=== PATIENT | male | born 1990 | race Hispanic/Latino ===

== ENCOUNTER 2016-10-31 20:57 | Emergency (ER) | payer OTHER ==
[2016-10-31 20:57] VITALS: BMI 18.9
[2016-10-31 21:48] VITALS: BP 109/69; PULSE 86; RESP 16; TEMP 97.3; O2SAT 99
[2016-10-31] MEDS ORDERED: Amoxicillin-Clav 500-125 mg Tab PO STA (21:55)
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
[2016-10-31] MEDS ORDERED: Amoxicillin-Clav 250-125 mg Tab PO ONE (22:17)
[2016-10-31] MEDS ORDERED: Amoxicillin-Clav 875-125 mg Tab PO ONE (22:29)
[2016-10-31] MEDS: TDAP Vaccine 0.5 mL Syr IM ONE (22:32)
[2016-10-31] MEDS: Amoxicillin-Clav 875-125 mg Tab PO STA (22:36)
== END 2016-10-31 23:04 | disposition home or self-care (01) ==
LOC: H.ER 20:57
DX: T14.8 Other injury of unspecified body region (principal); W50.3XXA Accidental bite by another person, initial encounter; Y04.1XXA Assault by human bite, initial encounter; F31.9 Bipolar disorder, unspecified

== ENCOUNTER 2016-12-18 19:15 | Emergency (ER) | payer OTHER ==
[2016-12-18 19:16] VITALS: BMI 18.9
[2016-12-18 19:24] VITALS: RESP 16; TEMP 97.7
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
[2016-12-18] MEDS ORDERED: Lidocaine 2% Inj (20ml) ONE (20:56)
[2016-12-18] MEDS ORDERED: Lidocaine 2% Inj (20ml) SC ONE (21:01)
--- NOTE | 2016-12-18 22:35 | CT ---
EXAM: CT Right Upper Extremity Without Intravenous Contrast, Wrist CLINICAL HISTORY: 26 years old, male; Injury or trauma; Fall; Initial encounter; Fracture, traumatic injury; Closed fracture; Wrist; Right; Additional info: Fxr TECHNIQUE: Axial computed tomography images of the right wrist without intravenous contrast. This CT exam was performed using one or more of the following dose reduction techniques: automated exposure control, adjustment of the mA and/or kV according to patient size, and/or use of iterative reconstruction technique. COMPARISON: No relevant prior studies available. FINDINGS: Bones/joints: Comminuted, intraarticular fracture distal radius. Mild impaction at fracture site. 08/17-08/15 shafts width volar displacement of principal distal fracture fragments. No dislocation. Mild volar tilt of the radioarticular surface. Positive ulnar variance. Soft tissues: Soft tissue swelling/stranding/air about distal forearm/wrist/hand. IMPRESSION: 1. Distal radial fracture. 2. Incidental/non-acute findings are described above.
[2016-12-18 23:33] VITALS: BP 110/63; PULSE 73; O2SAT 100
--- NOTE | 2016-12-19 10:01 | RAD ---
PROCEDURE: Radiographs of the Right Forearm HISTORY: deformity COMPARISON: Correlation made with concurrent radiographs of the right wrist TECHNIQUE: Frontal and lateral views obtained. FINDINGS: BONES: Comminuted mildly impacted intra-articular fracture distal right radius. Fracture lines extend into the joint space margin. There is mild and volar angulation of the comminuted distal fragments JOINT SPACES: As above OTHER FINDINGS: None. IMPRESSION: Comminuted mildly impacted intra-articular fracture distal right radius. Fracture lines extend into the joint space margin. There is mild volar angulation of the comminuted distal fragments
--- NOTE | 2016-12-19 10:04 | RAD ---
PROCEDURE: Right wrist dated 12/18/2016. Three views of the right wrist performed HISTORY: deformity COMPARISON: Comparison made with concurrent radiographs of the right forearm and right hand FINDINGS: BONES: Re- demonstrated is a comminuted mildly impacted intra-articular fracture distal right radius. Fracture lines extend into the joint space margin. There is mild volar angulation of the comminuted distal fragments JOINTS: Normal. No dislocation. SOFT TISSUES: Swelling surrounding soft tissue swelling OTHER FINDINGS: None. IMPRESSION: Re- demonstrated is a comminuted mildly impacted intra-articular fracture distal right radius. Fracture lines extend into the joint space margin. There is mild volar angulation of the comminuted distal fragments surrounding soft tissue
--- NOTE | 2016-12-19 10:06 | RAD ---
PROCEDURE: Right hand dated 12/18/2016 Three views of the right hand performed HISTORY: deformity COMPARISON: Correlation made with concurrent radiographs of the right wrist and right forearm FINDINGS: BONES: Re- demonstrated is a comminuted mildly impacted intra-articular fracture distal right radius. Fracture lines extend into the joint space margin. There is mild volar angulation of the comminuted distal fragments JOINTS: Normal. No osteoarthritic changes. SOFT TISSUES: Surrounding soft tissue swelling OTHER FINDINGS: None. IMPRESSION: Re- demonstrated is a comminuted mildly impacted intra-articular fracture distal right radius. Fracture lines extend into the joint space margin. There is mild volar angulation of the comminuted distal fragments . Surrounding soft tissue swelling
== END 2016-12-18 23:32 | disposition home or self-care (01) ==
LOC: H.ER 19:15
DX: S62.91XA Unspecified fracture of right hand, initial encounter for closed fracture (principal); V00.131A Fall from skateboard, initial encounter; Y92.410 Unspecified street and highway as the place of occurrence of the external cause; F31.9 Bipolar disorder, unspecified

== ENCOUNTER 2016-12-22 07:52 | Emergency (ER) | payer OTHER ==
[2016-12-22 07:52] VITALS: BMI 18.9
[2016-12-22 09:21] VITALS: BP 115/84; PULSE 61; RESP 19; TEMP 97; O2SAT 99
--- NOTE | 2016-12-22 09:24 | ED PDOC ---
Upper Extremity Pain/Injury Time Seen by Provider: 12/22/16 09:08 Chief Complaint (Nursing): Finger,Hand,&Wrist Chief Complaint (Provider): Finger,Hand,&Wrist History Per: Patient History/Exam Limitations: no limitations Onset/Duration Of Symptoms: Days Current Symptoms Are (Timing): Still Present Quality: "Pain" Severity: Moderate Exacerbating Factor(s): Movement Additional Complaint(s): Patient is a 26 year old male who presents to ED for evaluation of continued pain to his right hand. Patient reports he was evaluated in ED 3 days ago, diagnosed with a fracture and splint placed. Patient states that due to the swelling, the splint is causing more pain and is unrelieved with Motrin. Notes Percocet provided mild relief but was only provided enough for 3 days and appointment with orthopedic is not untill Monday12/27/16. Denies any new injury, numbness or increased swelling. Past Medical History Reviewed: Historical Data, Nursing Documentation, Vital Signs - Medical History PMH: Bipolar Disorder, Depression, Seizures Denies: Diabetes, Hepatitis, HIV, HTN, Chronic Kidney Disease, Sexually Transmitted Disease - Surgical History Surgical History: Appendectomy - Family History Family History: States: Unknown Family Hx - Living Arrangements Living Arrangements: With Family - Immunization History Hx Tetanus Toxoid Vaccination: No Hx Influenza Vaccination: No Hx Pneumococcal Vaccination: No - Home Medications Home Medications: Ambulatory Orders Medication Instructions Recorded Valproic Acid [Depakene] 250 mg PO BID #30 capsule 04/16/16 Divalproex [Depakote ER] 500 mg PO BID 06/21/16 Valproic Acid [Depakene] 500 mg PO BID #20 sgl 06/21/16 Divalproex [Depakote ER(ONCE 1,000 mg PO HS #60 ter 07/22/16 DAILY)] traZODone [Desyrel] 50 mg PO HS PRN #30 tab 07/22/16 Amoxicillin/Potassium Clav 1 each PO Q8 #30 tablet 10/31/16 [Augmentin 500-125 Tablet] Ibuprofen [Motrin] 600 mg PO Q6 #20 tab 12/18/16 Oxycodone HCl/Acetaminophen 1 each PO Q4 #10 tablet 12/18/16 [Endocet 10-325 mg Tablet] oxyCODONE/Acetaminophen [Percocet 1 ea PO Q6 PRN #5 tab 12/18/16 5/325 mg Tab] - Allergies Allergies/Adverse Reactions: Allergies Allergy/AdvReac Type Severity Reaction Status Date / Time No Known Allergies Allergy Verified 12/18/16 19:48 Review of Systems Constitutional: Negative for: Weakness Gastrointestinal: Negative for: Nausea Musculoskeletal: Positive for: Hand Pain. Negative for: Neck Pain Skin: Negative for: Rash Neurological: Negative for: Numbness Physical Exam - Reviewed Nursing Documentation Reviewed: Yes Vital Signs Reviewed: Yes - Physical Exam Appears: Positive for: Non-toxic, No Acute Distress Skin: Positive for: Normal Color, Warm Eye Exam: Positive for: Normal appearance Neck: Positive for: Normal Extremity: Positive for: Normal ROM, Capillary Refill (less then 2 seconds ), Swelling (dorsum right hand (+) mild deformity at wrist. (+) mild-moderate tenderness wrist. Decreased ROM of fingers secondary to pain but sensation and motor intact. Skin color WNL, area of swelling is soft and non tender ) Neurologic/Psych: Positive for: Alert, Oriented. Negative for: Motor/Sensory Deficits Medical Decision Making Medical Decision Making: Time: 909 Initial impression: Known fracture, not likely medial nerve paralysis or compartment syndrome Initial plan: -- Percocet PO Splint placed by environmental tech. Sugar tongue placed right arm with slight extension of hand. Follow up with Dr Larios is already arrange. Scribe Attestation: Documented by Jacqueline Beck acting as a scribe for Rachael Chen MD. Scribe Attestation: All medical record entries made by the Scribe were at my direction and personally dictated by me. I have reviewed the chart and agree that the record accurately reflects my personal performance of the history, physical exam, medical decision making, and the department course for this patient. I have also personally directed, reviewed, and agree with the discharge instructions and disposition. Disposition - Clinical Impression Clinical Impression: Distal radius fracture, right - Patient ED Disposition Is Patient to be Admitted: No Doctor Will See Patient In The: Office Counseled Patient/Family Regarding: Studies Performed, Diagnosis, Need For Followup - Disposition Referrals: Leno Larios III, MD [Staff Provider] - Disposition: Routine/Home Disposition Time: 10:10 Condition: GOOD Additional Instructions: Follow up with [facility] On Monday. Take motrin for pain. Elevate your arm. Carry splint at all times. return for severe pain, numbness, and weakness. Instructions: Wrist Fracture in Adults (ED)
[2016-12-22] MEDS ORDERED: Oxycodone/Acetaminophen 5/325 mg Tab PO ONE (09:27)
[2016-12-22] MEDS ORDERED: Oxycodone/Acetaminophen 5/325 mg Tab ONE (09:30)
== END 2016-12-22 10:30 | disposition home or self-care (01) ==
LOC: SUPCPDRO 07:52 → H.ER 07:52
DX: M79.641 Pain in right hand (principal); Z47.89 Encounter for other orthopedic aftercare; F31.9 Bipolar disorder, unspecified

== ENCOUNTER 2017-02-23 20:00 | Observation (INO) | payer OTHER, MEDICAID ==
[2017-02-23 20:00] VITALS: BMI 18.9
[2017-02-23 20:11] VITALS: BP 116/77; PULSE 90; RESP 18; TEMP 97.8; O2SAT 97
[2017-02-23] MEDS ORDERED: Divalproex 500 mg ER (ONCE DAILY formulation) PO STA (20:33)
[2017-02-23] MEDS ORDERED: Sodium Chloride 0.9% 1,000 ML IV STA (20:33)
[2017-02-23 20:51] LABS: BASO % 0.6 % (0.0-2.0); EOS # 0.1 K/uL (0.0-0.7); EOS % 1.7 % (0.0-4.0); HEMOGLOBIN 14.2 g/dL (12.0-18.0); LYMPH # 1.5 K/uL (1.0-4.3); LYMPH % 26.7 % (20.0-40.0); MEAN CELL VOLUME 87.8 fl (80.0-94.0); MEAN CORPUSCULAR HEMOGLOBIN 29.1 pg (27.0-31.0); MEAN CORPUSCULAR HGB CONC 33.1 g/dL (33.0-37.0); MEAN PLATELET VOLUME 8.6 fl (7.2-11.7); MONO # 0.3 K/uL (0.0-0.8); MONO % 4.9 % (0.0-10.0); NEUT # 3.6 K/uL (1.8-7.0); NEUT % 66.1 % (50.0-75.0); NRBC % 0.2 % (0.0-0.0); RBC 4.88 Mil/uL (4.40-5.90); RED CELL DISTRIBUTION WIDTH 13.4 % (11.5-14.5); WHITE BLOOD COUNT 5.5 K/uL (4.8-10.8)
--- NOTE | 2017-02-23 20:54 | ED PDOC ---
HPI: General Adult Time Seen by Provider: 02/23/17 20:09 Chief Complaint (Nursing): Seizure History Per: Patient Additional Complaint(s): Pt. states earlier this afternoon while he walking he began to feel weak. He decided to sit down and while sitting down her fainted. He reports waking up on his own and was told by a bystander that he did faint but did not have any seizure like activity. States that he was able to call for an ambulance and he did not have any tongue lacerations or incontinence. Pt. states he has not taken his Depakote 1000mg ER in 3 days as he does not like how it makes him feel. Last seizure was approximately 7 months ago. Denies fever, chest pain, incontinence, oral injury, headache, rash, neck pain. Past Medical History Reviewed: Historical Data, Nursing Documentation, Vital Signs Vital Signs: Last Vital Signs Temp 97.8 F 02/23/17 20:08 Pulse 90 02/23/17 20:08 Resp 18 02/23/17 20:08 BP 116/77 02/23/17 20:08 Pulse Ox 97 02/24/17 04:12 - Medical History PMH: Bipolar Disorder, Depression, Seizures Denies: Diabetes, Hepatitis, HIV, HTN, Chronic Kidney Disease, Sexually Transmitted Disease - Surgical History Surgical History: Appendectomy - Family History Family History: States: Unknown Family Hx - Immunization History Hx Tetanus Toxoid Vaccination: No Hx Influenza Vaccination: No Hx Pneumococcal Vaccination: No - Home Medications Home Medications: Ambulatory Orders Medication Instructions Recorded Valproic Acid [Depakene] 250 mg PO BID #30 capsule 04/16/16 Divalproex [Depakote ER] 500 mg PO BID 06/21/16 Valproic Acid [Depakene] 500 mg PO BID #20 sgl 06/21/16 Divalproex [Depakote ER(ONCE 1,000 mg PO HS #60 ter 07/22/16 DAILY)] traZODone [Desyrel] 50 mg PO HS PRN #30 tab 07/22/16 Amoxicillin/Potassium Clav 1 each PO Q8 #30 tablet 10/31/16 [Augmentin 500-125 Tablet] Ibuprofen [Motrin] 600 mg PO Q6 #20 tab 12/18/16 Oxycodone HCl/Acetaminophen 1 each PO Q4 #10 tablet 12/18/16 [Endocet 10-325 mg Tablet] oxyCODONE/Acetaminophen [Percocet 1 ea PO Q6 PRN #5 tab 12/18/16 5/325 mg Tab] - Allergies Allergies/Adverse Reactions: Allergies Allergy/AdvReac Type Severity Reaction Status Date / Time No Known Allergies Allergy Verified 12/18/16 19:48 Review of Systems ROS Statement: Except As Marked, All Systems Reviewed And Found Negative Neurological: Positive for: Weakness Physical Exam - Reviewed Nursing Documentation Reviewed: Yes Vital Signs Reviewed: Yes - Physical Exam Appears: Positive for: Well, Non-toxic, No Acute Distress Head Exam: Positive for: ATRAUMATIC, NORMAL INSPECTION, NORMOCEPHALIC Skin: Positive for: Normal Color, Warm. Negative for: Rash Eye Exam: Positive for: EOMI, Normal appearance, PERRL ENT: Positive for: Normal ENT Inspection, Other (no oral lacerations) Neck: Positive for: Normal, Painless ROM Cardiovascular/Chest: Positive for: Regular Rate, Rhythm Respiratory: Positive for: Normal Breath Sounds. Negative for: Respiratory Distress Gastrointestinal/Abdominal: Positive for: Normal Exam, Bowel Sounds, Soft. Negative for: Tenderness Back: Positive for: Normal Inspection Extremity: Positive for: Normal ROM Neurologic/Psych: Positive for: Alert, Oriented - Laboratory Results Result Diagrams: 02/23/17 20:35 02/23/17 20:35 - ECG O2 Sat by Pulse Oximetry: 97 - Progress ED Course And Treament: Labs ordered. Depakote 1000mg PO given. IV NS bolus ordered. Seizure precautions ordered. Pt. placed on monitor. ED OBSERVATION Discharge: Yes Date of observation admission: 02/23/17 Time of observation admission: 20:33 - Observation admission statement Patient is being placed in observation because:: Syncope - Progress Note Progress Note: 02/23/17 23:16 Sleeping comfortably. Arousable to tactile and verbal stimuli but easily falls back asleep. Pending urine test. 02/24/17 00:42 Still sleeping. Pt. admits to eating several marijuana laced brownies. 02/24/17 03:18 Sleeping comfortably and in no distress. 02/24/17 05:11 AOx3. Sitting up resting comfortably. Offers no complaints. Disposition - Clinical Impression Clinical Impression: Syncope, Marijuana use - Patient ED Disposition Is Patient to be Admitted: No - Disposition Disposition: Routine/Home Disposition Time: 05:12 Condition: IMPROVED
[2017-02-23 21:02] LABS: ALB/GLOB RATIO 1.5 (1.0-2.1); ALBUMIN 4.5 g/dL (3.5-5.0); ALT/SGPT 40 U/L (21-72); AST/SGOT 35 U/L (17-59); BLOOD UREA NITROGEN 12 mg/dl (9-20); CALCIUM 9.5 mg/dL (8.4-10.2); GFR AFRICAN-AMERICAN > 60; GFR NON-AFRICAN AMERICAN > 60
[2017-02-23 23:32] LABS: URINE BACTERIA FEW (<OCC); URINE BILIRUBIN NEGATIVE (NEGATIVE); URINE BLOOD NEGATIVE (NEGATIVE); URINE CLARITY CLEAR (Clear); URINE COLOR YELLOW (YELLOW); URINE GLUCOSE (UA) NEG (Normal); URINE LEUKOCYTE ESTERASE NEG Leu/uL (Negative); URINE NITRATE NEGATIVE (NEGATIVE); URINE PROTEIN NEGATIVE (NEGATIVE); URINE UROBILINOGEN 0.2-1.0 mg/dL (0.2-1.0)
[2017-02-23 23:38] LABS: BARBITURATES, UR NEGATIVE (NEGATIVE); BENZODIAZEPINES, UR NEGATIVE (NEGATIVE); OPIATES, UR NEGATIVE (NEGATIVE); PHENCYCLIDINE, UR NEGATIVE (NEGATIVE)
--- NOTE | 2017-02-24 08:58 | CARD ---
APPROVED REPORT EKG Measurement Heart [id number] <Conclusion> Sinus bradycardia with 1st degree AV block Otherwise normal ECG
== END 2017-02-24 05:47 | disposition home or self-care (01) ==
LOC: H.ER 20:00 → H.EROBSV 20:33
PROVIDERS: ADMIT Emergency Medicine; ATTEND Emergency Medicine
DX: R55 Syncope and collapse (principal); F12.90 Cannabis use, unspecified, uncomplicated; Z86.59 Personal history of other mental and behavioral disorders; R56.9 Unspecified convulsions

== ENCOUNTER 2017-09-19 14:17 | Emergency (ER) | payer MEDICAID, OTHER ==
[2017-09-19 14:17] VITALS: BMI 18.9
[2017-09-19 14:28] VITALS: BP 132/84; PULSE 93; RESP 14; TEMP 97; O2SAT 99
--- NOTE | 2017-09-19 15:16 | ED PDOC ---
HPI: General Adult Time Seen by Provider: 09/19/17 14:46 Chief Complaint (Nursing): Male Genitourinary History Per: Patient Additional Complaint(s): Pt. states on Monday he had unprotected vaginal intercourse and states this morning he developed dysuria, yellow penile discharge, and a pruritic rash on his penis. Denies hx of STD, vesicles, testicular trauma, testicular pain/ swelling. Past Medical History Reviewed: Historical Data, Nursing Documentation, Vital Signs Vital Signs: Last Vital Signs Temp 97.0 F L 09/19/17 14:24 Pulse 93 H 09/19/17 14:24 Resp 14 09/19/17 14:24 BP 132/84 09/19/17 14:24 Pulse Ox 99 09/19/17 15:17 - Medical History PMH: Bipolar Disorder, Depression, Seizures Denies: Diabetes, Hepatitis, HIV, HTN, Chronic Kidney Disease, Sexually Transmitted Disease - Surgical History Surgical History: Appendectomy - Family History Family History: States: No Known Family Hx - Immunization History Hx Tetanus Toxoid Vaccination: No Hx Influenza Vaccination: No Hx Pneumococcal Vaccination: No - Home Medications Home Medications: Ambulatory Orders Medication Instructions Recorded Valproic Acid [Depakene] 250 mg PO BID #30 capsule 04/16/16 Divalproex [Depakote ER] 500 mg PO BID 06/21/16 Valproic Acid [Depakene] 500 mg PO BID #20 sgl 06/21/16 Divalproex [Depakote ER(ONCE 1,000 mg PO HS #60 ter 07/22/16 DAILY)] traZODone [Desyrel] 50 mg PO HS PRN #30 tab 07/22/16 Amoxicillin/Potassium Clav 1 each PO Q8 #30 tablet 10/31/16 [Augmentin 500-125 Tablet] Ibuprofen [Motrin] 600 mg PO Q6 #20 tab 12/18/16 Oxycodone HCl/Acetaminophen 1 each PO Q4 #10 tablet 12/18/16 [Endocet 10-325 mg Tablet] oxyCODONE/Acetaminophen [Percocet 1 ea PO Q6 PRN #5 tab 12/18/16 5/325 mg Tab] Divalproex [Depakote ER] 1,000 mg PO HS #14 ter 02/24/17 Ondansetron ODT [Zofran ODT] 4 mg PO TID #21 odt 02/24/17 - Allergies Allergies/Adverse Reactions: Allergies Allergy/AdvReac Type Severity Reaction Status Date / Time No Known Allergies Allergy Verified 12/18/16 19:48 Review of Systems ROS Statement: Except As Marked, All Systems Reviewed And Found Negative Genitourinary Male: Positive for: Dysuria, Penile Discharge, Rash Skin: Positive for: Rash Physical Exam - Physical Exam Appears: Positive for: Well, Non-toxic, No Acute Distress Skin: Positive for: Normal Color, Warm, DRY Gastrointestinal/Abdominal: Positive for: Normal Exam, Soft. Negative for: Tenderness Male Genital Exam: Positive for: lesions (scattered erythematous papular rash on penile shaft and on penile head without vesicles). Negative for: inguinal tenderness, scrotum tenderness (R), scrotum tenderness (L), testicular tenderness (R), testicular tenderness (L), urethral discharge - ECG O2 Sat by Pulse Oximetry: 99 Medical Decision Making Medical Decision Making: Rocephin 250mg IM, zithromax 1000mg PO ordered. Disposition - Clinical Impression Clinical Impression: Urethritis - Patient ED Disposition Is Patient to be Admitted: No - Disposition Referrals: [facility] [Outside] [facility] [place] [Outside] Disposition: Routine/Home Disposition Time: 16:41 Condition: STABLE Instructions: Sexually Transmitted Diseases (ED) Forms: [facility] ([place])
[2017-09-19 16:12] LABS: SQUAMOUS EPITHIAL < 1 /hpf (0-5); URINE BILIRUBIN NEGATIVE (NEGATIVE); URINE BLOOD NEGATIVE (NEGATIVE); URINE CLARITY CLEAR (Clear); URINE COLOR YELLOW (YELLOW); URINE GLUCOSE (UA) NEG (Normal); URINE LEUKOCYTE ESTERASE NEG Leu/uL (Negative); URINE NITRATE NEGATIVE (NEGATIVE); URINE PROTEIN NEGATIVE (NEGATIVE); URINE UROBILINOGEN 0.2-1.0 mg/dL (0.2-1.0)
[2017-09-19] MEDS ORDERED: cefTRIAXone (Rocephin) 250 mg Inj IM ONE (16:39)
[2017-09-19] MEDS ORDERED: cefTRIAXone (Rocephin) 250 mg Inj ONE (16:46)
[2017-09-21 19:47] LABS: C. PNEUMONIAE IGA <1:16 (<1:16); C. PNEUMONIAE IGG <1:64 (<1:64); C. PNEUMONIAE IGM <1:10 (<1:10); C. PSITTACI IGA <1:16 (<1:16); C. PSITTACI IGG <1:64 (<1:64); C. PSITTACI IGM <1:10 (<1:10)
== END 2017-09-19 17:00 | disposition home or self-care (01) ==
LOC: H.ER 14:17
DX: N34.2 Other urethritis (principal)
CPT/HCPCS: 81003; 86631; 86632; 86695; 86696; 87491; 87591; 96372; 99283; J0696